=== PATIENT | male | born 1970 | race Caucasian/White ===

== ENCOUNTER 2017-03-28 16:41 | Inpatient (IN) ==
[2017-03-28] MEDS ORDERED: SODIUM CHLORIDE 0.9% 500 ML IV STA (18:02)
[2017-03-28] MEDS ORDERED: LEVOFLOXACIN INJ 750 MG in PREMIX 1 EACH IV STA (18:02)
[2017-03-28] MEDS ORDERED: DICYCLOMINE 20 MG/2 ML AMP IM ONE ×2 (18:02→19:17)
[2017-03-28] MEDS ORDERED: metroNIDAZOLE INJ 500 MG in PREMIX 1 EACH IV STA (18:02)
[2017-03-28 18:21] LABS: Apearance,Urine CLEAR (Clear); Bilirubin,Urine Negative (Negative); Blood, Urine Negative (Negative); Glucose,Urine (UA) >=500 mg/dL (Negative); Ketones,Urine Negative (Negative); Mucus,Urine Occasional /LPF (Occasional); Nitrite,Urine Negative (Negative); Protein,Urine Negative; Urine Color Yellow (Yellow); Urine Specific Gravity 1.025 (1.001-1.035); WBC,Urine 1 /HPF (0-6)
[2017-03-28] MEDS ORDERED: metroNIDAZOLE 500 MG/100 ML PREMIX IV ONE (18:39)
[2017-03-28 18:49] LABS: Basophils % 0.3 % (0.0-0.8); Eosinophils # 0.1 10*3/uL (0.0-0.87); Eosinophils % 1.8 % (0.00-10.9); Hematocrit 40.7 VOL% (42.0-52.0); Hemoglobin 14.1 GM/DL (14.0-18.0); Immature Granulocytes % 0.9 %; Immature Granulocytes Absolute 0.07 #; Lymphocytes # 1.9 10*3/uL (1.4-4.0); Lymphocytes % 24.2 % (21.2-54.2); Mean Corpuscular HGB Conc 34.6 GM/DL (32-36); Mean Corpuscular Hemoglobin 30 PG (27-34); Mean Platelet Volume 11.4 FL (9.6-12.0); Monocytes # 0.7 10*3/uL (0.11-0.8); Monocytes % 8.5 % (1.7-12.7); Neutrophils # 4.9 10*3/uL (1.4-7.4); Neutrophils % 64.3 % (38.7-73.9); Platelet Count 198 T/CUMM (130-400); Red Blood Count 4.73 MC/CUMM (3.8-5.5); Red Cell Distribution Width 13.1 % (9.3-17.3); White Blood Count 7.6 T/CUMM (4-12)
[2017-03-28 19:05] LABS: Albumin 3.8 G/DL (3.4-5.0); Bilirubin,Total 0.7 MG/DL (0.2-1.0); Calcium 9.1 MG/DL (8.5-10.1); Potassium 4.1 MMOL/L (3.5-5.1); Total Protein 7.4 G/DL (6.4-8.3)
[2017-03-28] MEDS ORDERED: LEVOFLOXACIN INJ 150 ML IV ONE (20:11)
[2017-03-28] MEDS ORDERED: HYDROmorphone 2 MG/1 ML VIAL IV PRN (21:48)
[2017-03-28] MEDS ORDERED: ONDANSETRON 4 MG/2 ML VIAL IV PRN (21:48)
[2017-03-28] MEDS ORDERED: DEXTROSE 50% 25 GM/50 ML VIAL IV PRN (21:48)
[2017-03-28] MEDS ORDERED: GLUCAGON 1 MG VIAL IM PRN (21:48)
[2017-03-28] MEDS: LEVOFLOXACIN INJ 750 MG in PREMIX 1 EACH IV SCH (22:11)
[2017-03-28] MEDS: INSULIN REGULAR 100 UNIT/ML SUBCUT SCH (22:24)
[2017-03-28] MEDS: DICYCLOMINE 20 MG TABLET PO SCH (22:24)
[2017-03-29] MEDS: metroNIDAZOLE INJ 500 MG in PREMIX 1 EACH IV SCH ×5 (00:04→23:00)
[2017-03-29] MEDS: DICYCLOMINE 20 MG TABLET PO SCH ×3 (09:59→21:11)
[2017-03-29] MEDS: metFORMIN 500 MG TABLET PO SCH ×2 (09:59→17:25)
[2017-03-29] MEDS: INSULIN REGULAR 100 UNIT/ML SUBCUT SCH ×3 (10:08→16:43)
[2017-03-29] MEDS: LEVOFLOXACIN INJ 750 MG in PREMIX 1 EACH IV SCH (21:12)
[2017-03-30] MEDS: INSULIN REGULAR 100 UNIT/ML SUBCUT SCH ×4 (00:10→16:49)
[2017-03-30] MEDS: metroNIDAZOLE INJ 500 MG in PREMIX 1 EACH IV SCH ×4 (04:35→23:30)
[2017-03-30] MEDS: metFORMIN 500 MG TABLET PO SCH ×2 (09:25→16:48)
[2017-03-30] MEDS: ZALEPLON 5 MG CAPSULE PO PRN (21:42)
[2017-03-30] MEDS: LEVOFLOXACIN INJ 750 MG in PREMIX 1 EACH IV SCH (21:43)
[2017-03-31] MEDS: metroNIDAZOLE INJ 500 MG in PREMIX 1 EACH IV SCH ×4 (05:30→22:33)
[2017-03-31] MEDS: INSULIN REGULAR 100 UNIT/ML SUBCUT SCH ×5 (05:38→22:45)
[2017-03-31] MEDS: metFORMIN 500 MG TABLET PO SCH ×2 (09:45→16:42)
[2017-03-31] MEDS: LEVOFLOXACIN INJ 750 MG in PREMIX 1 EACH IV SCH (20:25)
[2017-03-31] MEDS: ZALEPLON 5 MG CAPSULE PO PRN (23:37)
[2017-04-01] MEDS: metroNIDAZOLE INJ 500 MG in PREMIX 1 EACH IV SCH ×2 (03:42→08:55)
[2017-04-01] MEDS: metFORMIN 500 MG TABLET PO SCH (08:53)
[2017-04-01] MEDS: INSULIN REGULAR 100 UNIT/ML SUBCUT SCH ×2 (09:00→11:48)
[2017-04-01 11:58] VITALS: BP 141/80
== END 2017-04-01 12:55 | disposition home or self-care (01) | DRG 392 ==
LOC: N.ED 16:41 → N.EDINP 20:34 → N.2E 21:01
PROVIDERS: ADMIT Family Medicine; ATTEND Family Medicine

== ENCOUNTER 2021-11-28 17:45 | Inpatient (IN) ==
[2021-11-28] MEDS ORDERED: LIDOCAINE 1%/EPI INJ 20 ML VIAL ONE (20:40)
[2021-11-28] MEDS ORDERED: VANCOMYCIN INJ 2,250 MG in SODIUM CHLORIDE 0.9% 250 ML IV STA (20:59)
[2021-11-28] MEDS ORDERED: SODIUM CHLORIDE 0.9% 1,000 ML IV STA (20:59)
[2021-11-28] MEDS ORDERED: KETOROLAC 30 MG/1 ML VIAL IV STA (20:59)
[2021-11-28] MEDS ORDERED: VANCOMYCIN INJ 2,250 MG in SODIUM CHLORIDE 0.9% 500 ML IV STA (21:01)
[2021-11-28 21:42] LABS: Basophils % 0.3 % (0.0-0.8); Eosinophils # 0.1 10*3/uL (0.0-0.87); Eosinophils % 0.4 % (0.00-10.9); Hematocrit 41.9 VOL% (42.0-52.0); Hemoglobin 14.5 GM/DL (14.0-18.0); Immature Granulocytes % 0.5 %; Immature Granulocytes Absolute 0.06 #; Lymphocytes # 1.6 10*3/uL (1.4-4.0); Lymphocytes % 12.4 % (21.2-54.2); Mean Corpuscular HGB Conc 34.6 GM/DL (32-36); Mean Platelet Volume 11.1 FL (9.6-12.0); Monocytes # 1.2 10*3/uL (0.11-0.8); Neutrophils % 77.4 % (38.7-73.9); Platelet Count 225 T/CUMM (130-400); Red Blood Count 4.93 MC/CUMM (3.8-5.5); Red Cell Distribution Width 13.2 % (9.3-17.3); White Blood Count 13.2 T/CUMM (4-12)
[2021-11-28 21:55] LABS: Calcium 9.1 MG/DL (8.5-10.1); Osmolality,Calculated 275.4 MOS/KG (273-304); Potassium 3.9 MMOL/L (3.5-5.1)
[2021-11-28] MEDS ORDERED: ACETAMINOPHEN 325 MG TABLET PO PRN (22:08)
[2021-11-28] MEDS ORDERED: GLUCAGON 1 MG VIAL IM PRN (22:08)
[2021-11-28] MEDS ORDERED: DEXTROSE 10% 250 ML BAG IV PRN (22:08)
[2021-11-28] MEDS ORDERED: ONDANSETRON 4 MG/2 ML VIAL IV PRN (22:08)
[2021-11-28] MEDS: SODIUM CHLORIDE 0.9% 1,000 ML IV SCH (23:19)
[2021-11-29] MEDS: PANTOPRAZOLE 40 MG TABLET PO SCH (10:22)
[2021-11-29] MEDS: DOCUSATE SODIUM 100 MG CAPSULE PO SCH ×2 (10:22→22:13)
[2021-11-29] MEDS: VANCOMYCIN INJ 2,000 MG in SODIUM CHLORIDE 0.9% 500 ML IV SCH ×2 (10:22→22:13)
[2021-11-29] MEDS: SODIUM CHLORIDE 0.9% 1,000 ML IV SCH ×2 (10:23→16:16)
[2021-11-29] MEDS ORDERED: GLUCAGON 1 MG VIAL IM PRN (13:37)
[2021-11-29] MEDS ORDERED: DEXTROSE 50% 25 GM/50 ML VIAL IV PRN (13:37)
[2021-11-29] MEDS: KETOROLAC 30 MG/1 ML VIAL IV PRN (15:11)
[2021-11-29] MEDS: INSULIN REGULAR 100 UNIT/ML SUBCUT SCH ×2 (16:04→22:57)
[2021-11-29] MEDS ORDERED: SIMVASTATIN 20 MG TABLET PO SCH (21:00)
[2021-11-29] MEDS ORDERED: lisinopriL 10 MG TABLET PO SCH (21:00)
[2021-11-29] MEDS: DOXYCYCLINE HYCLATE 100 MG CAPSULE PO SCH (22:16)
[2021-11-30] MEDS: SODIUM CHLORIDE 0.9% 1,000 ML IV SCH ×3 (02:03→15:47)
[2021-11-30 06:47] LABS: Basophils % 0.5 % (0.0-0.8); Eosinophils # 0.2 10*3/uL (0.0-0.87); Eosinophils % 3.6 % (0.00-10.9); Hematocrit 39.3 VOL% (42.0-52.0); Hemoglobin 13.1 GM/DL (14.0-18.0); Immature Granulocytes % 1.1 %; Immature Granulocytes Absolute 0.07 #; Lymphocytes # 1.2 10*3/uL (1.4-4.0); Mean Corpuscular HGB Conc 33.3 GM/DL (32-36); Mean Corpuscular Volume 87.5 FL (87-102); Mean Platelet Volume 10.6 FL (9.6-12.0); Monocytes # 0.6 10*3/uL (0.11-0.8); Monocytes % 9.2 % (1.7-12.7); Neutrophils % 67.6 % (38.7-73.9); Platelet Count 192 T/CUMM (130-400); Red Blood Count 4.49 MC/CUMM (3.8-5.5); Red Cell Distribution Width 13.1 % (9.3-17.3); White Blood Count 6.4 T/CUMM (4-12)
[2021-11-30 07:16] LABS: Calcium 8.4 MG/DL (8.5-10.1); Osmolality,Calculated 283.5 MOS/KG (273-304); Potassium 3.8 MMOL/L (3.5-5.1)
[2021-11-30] MEDS: DOCUSATE SODIUM 100 MG CAPSULE PO SCH ×2 (10:33→20:55)
[2021-11-30] MEDS: DOXYCYCLINE HYCLATE 100 MG CAPSULE PO SCH ×2 (10:33→20:56)
[2021-11-30] MEDS: PANTOPRAZOLE 40 MG TABLET PO SCH (10:33)
[2021-11-30] MEDS: INSULIN REGULAR 100 UNIT/ML SUBCUT SCH ×4 (10:33→21:14)
[2021-11-30] MEDS: VANCOMYCIN INJ 2,000 MG in SODIUM CHLORIDE 0.9% 500 ML IV SCH ×2 (10:34→20:55)
[2021-11-30] MEDS: KETOROLAC 30 MG/1 ML VIAL IV PRN ×2 (10:35→20:58)
[2021-11-30] MEDS ORDERED: INSULIN GLARGINE 100 UNIT/ML SUBCUT SCH (12:55)
[2021-11-30] MEDS: PIOGLITAZONE 15 MG TABLET PO SCH (14:21)
[2021-11-30] MEDS: metFORMIN 500 MG TABLET PO SCH (16:46)
[2021-12-01] MEDS: SODIUM CHLORIDE 0.9% 1,000 ML IV SCH ×2 (04:13→12:31)
[2021-12-01] MEDS: DOXYCYCLINE HYCLATE 100 MG CAPSULE PO SCH ×2 (09:56→21:21)
[2021-12-01] MEDS: PIOGLITAZONE 15 MG TABLET PO SCH (09:56)
[2021-12-01] MEDS: INSULIN REGULAR 100 UNIT/ML SUBCUT SCH ×4 (09:57→21:22)
[2021-12-01] MEDS: metFORMIN 500 MG TABLET PO SCH ×2 (09:57→17:03)
[2021-12-01] MEDS: DOCUSATE SODIUM 100 MG CAPSULE PO SCH ×2 (09:57→21:21)
[2021-12-01] MEDS: PANTOPRAZOLE 40 MG TABLET PO SCH (09:57)
[2021-12-01] MEDS: VANCOMYCIN INJ 2,000 MG in SODIUM CHLORIDE 0.9% 500 ML IV SCH ×2 (10:00→21:25)
[2021-12-01] MEDS: KETOROLAC 30 MG/1 ML VIAL IV PRN ×2 (10:01→21:23)
[2021-12-01] MEDS: INSULIN GLARGINE 100 UNIT/ML SUBCUT SCH (11:01)
[2021-12-02] MEDS: SODIUM CHLORIDE 0.9% 1,000 ML IV SCH (03:40)
[2021-12-02 08:24] VITALS: BP 167/99
[2021-12-02] MEDS: INSULIN REGULAR 100 UNIT/ML SUBCUT SCH (08:24)
[2021-12-02] MEDS: PIOGLITAZONE 15 MG TABLET PO SCH (08:25)
[2021-12-02] MEDS: metFORMIN 500 MG TABLET PO SCH (08:25)
[2021-12-02] MEDS: DOCUSATE SODIUM 100 MG CAPSULE PO SCH (08:25)
[2021-12-02] MEDS: PANTOPRAZOLE 40 MG TABLET PO SCH (08:25)
[2021-12-02] MEDS: VANCOMYCIN INJ 2,000 MG in SODIUM CHLORIDE 0.9% 500 ML IV SCH (08:25)
[2021-12-02] MEDS: INSULIN GLARGINE 100 UNIT/ML SUBCUT SCH (08:25)
[2021-12-02] MEDS: DOXYCYCLINE HYCLATE 100 MG CAPSULE PO SCH (08:25)
== END 2021-12-02 11:33 | disposition home or self-care (01) | DRG 638 ==
LOC: N.ED 17:45 → N.EDINP 22:08 → N.5E 11-29 02:01
PROVIDERS: ADMIT Family Medicine; ATTEND Family Medicine